=== PATIENT | female | born 1975 | race Caucasian/White ===

== ENCOUNTER 2020-10-20 10:10 | Emergency (ER) | payer OTHER, SELFPAY ==
--- NOTE | ~2020-10-20 | XR_ITS ---
EXAMINATION: XR chest 2V 10/20/2020 11:18 INDICATION: Shortness of breath PROCEDURE: PA and lateral views of the chest COMPARISON: No prior studies for comparison. FINDINGS: The lungs are clear. The cardiomediastinal silhouette is within normal limits. There are no pleural effusions. There is no pneumothorax suspected. IMPRESSION: 1: NO ACUTE CARDIOPULMONARY DISEASE. Reviewed, dictated and finalized at location A. D ASSEMBLY SUPERVISOR
[2020-10-20 10:10] VITALS: BP 151/71; PULSE 80; RESP 20; TEMP 37.2; O2SAT 100
--- NOTE | 2020-10-20 10:12 | ECG_ITS ---
Measurements Intervals [place] Rate: 97 P: 48 [place]: 152 QRS: 14 QRSD: 142 T: 25 QT: 367 QTc: 468 Interpretive Statements SINUS RHYTHM RIGHT BUNDLE BRANCH BLOCK BASELINE ARTIFACT- I, II, III, AVR, AVF ABNORMAL ECG Electronically Signed On 10-21-2020 16:38:42 DUPLICATE MAKER by Ricardo Conrad D.O.
[2020-10-20 11:00] VITALS: PULSE 77; RESP 17; O2SAT 100
[2020-10-20] MEDS: ALPRAZolam (*CRX) 0.5 MG TABLET PO (11:04)
[2020-10-20] MEDS: IPRATROPIUM 0.5 MG/ALBUTEROL SULFATE 2.5 MG AMPUL.NEB 3 ML INHALATION (11:07)
[2020-10-20] MEDS: methylPREDNISolone SOD SUCC 125 MG VIAL IV PUSH (11:07)
[2020-10-20 11:10] VITALS: PULSE 81; RESP 20; O2SAT 100
[2020-10-20 11:29] LABS: Basophils Absolute Auto 0.04 K/mm3 (0.00-0.10); Basophils Percent Auto 0.5 % (0.0-1.0); Eosinophils Percent Auto 3.7 % (1.0-6.0); Hematocrit 39.2 % (35.0-49.0); Hemoglobin 12.2 g/dL (12.0-15.0); Immature Granulocyte Absolute 0.03 K/mm3 (0.00-0.00); Immature Granulocyte Percent A 0.4 % (0.0-0.0); Lymphocytes Absolute Auto 2.37 K/mm3 (1.10-4.50); Mean Corpuscular HGB Conc 31.1 g/dL (32.0-36.0); Mean Corpuscular Hemoglobin 24.8 pg (27.0-31.0); Mean Corpuscular Volume 79.8 fL (78.0-102.0); Mean Platelet Volume 9.1 fl (9.2-11.8); Monocytes Absolute Auto 0.71 K/mm3 (0.10-0.90); Monocytes Percent Auto 8.7 % (2.0-11.0); Neutrophils Absolute Auto 4.7 K/mm3 (1.7-7.2); Neutrophils Percent Auto 57.7 % (50.0-70.0); Platelet Count Result 348 K/mm3 (150-420); Red Blood Count 4.91 M/mm3 (4.20-5.40); Red Cell Distribution Width 15.3 % (11.6-14.4); White Blood Count 8.2 K/mm3 (4.8-10.8)
[2020-10-20 11:46] LABS: Alanine Aminotransferase 22 U/L (14-59); Albumin Level 3.4 g/dL (3.4-5.0); Alkaline Phosphatase 84 U/L (46-116); Anion Gap 9 mmol/L (8-16); Aspartate Amino Transferase < 10 U/L (15-37); Bilirubin,Total 0.2 mg/dL (0.00-1.00); Blood Urea Nitrogen 10 mg/dL (7-18); Calcium 8.9 mg/dL (8.5-10.1); Carbon Dioxide 26 mmol/L (21-32); Chloride 105 mmol/L (98-108); Estimated Glomerular Filt Rate > 60; Glucose 152 mg/dL (70-99); Osmolality Calculated 292 mOsm/kg (285-295); Potassium 3.5 mmol/L (3.5-5.1); Sodium 140 mmol/L (136-145); Total Protein 7.6 g/dL (6.4-8.2)
--- NOTE | 2020-10-20 11:53 | ED.CHESTPAIN ---
HPI - Chest Pain General Chief Complaint: Chest Pain Stated Complaint: chest pain/tightness Source: patient Mode of arrival: ambulatory Limitations: no limitations History of Present Illness HPI narrative: this is a 45-year-old female presents with some chest tightness with increased shortness of breath does have a history of asthma and recently had positive COVID back in early September. Currently the patient is having some audible wheezing with chest tightness history of asthma and currently on inhalers. Currently afebrile with no reproducible chest pain no fever chills no nausea vomiting no abdominal pain. Patient feels that she is also anxious secondary to having difficulty with her breathing. MD complaint: chest discomfort Pertinent past history: asthma Onset (ago): day(s) Timing of current episode: constant Onset: during rest and during exertion Related Data Home Medications Medication Instructions Recorded Confirmed albuterol sulfate 1 - 2 puff INHALATION QID PRN 10/20/20 10/20/20 budesonide-formoterol [Symbicort] 1 puff INHALATION BID 10/20/20 10/20/20 metoprolol succinate 100 mg PO DAILY 10/20/20 10/20/20 omeprazole 20 mg PO DAILY 10/20/20 10/20/20 Allergies Allergy/AdvReac Type Severity Reaction Status Date / Time No Known Allergies Allergy Verified 10/20/20 10:25 Review of Systems Review of Systems: All systems reviewed & are unremarkable except as noted in HPI and below PMFSH Past Medical History Medical History Asthma Exam Const: General: no acute distress HENMT: Head: normal to inspection Eyes: Conjunctivae: conjunctivae normal Pupils: Equal, round and reactive pupils present Direct Ophthalmoscopy: no photophobia Neck: Neck: normal visual inspection Chest: Chest palpation & inspection: normal inspection of the chest Resp: Effort & Inspection: normal respiratory effort Auscultation: wheezes Cardio: Rate: regular rate Rhythm: regular rhythm GI: Auscultation: normal bowel sounds Skin: General skin exam: normal color Rashes: no rashes Extrem: General: normal to inspection Psych: Appearance: grossly normal Mental Status: mental status grossly normal Affect: normal affect Course Course Emergency Course: after nebulizer treatment and IV steroid along with a dose of Xanax the patient states that she feels much better breathing much easier and after reassessment of lungs some patient currently not wheezy and lungs appear more clear. Vital Signs Vital signs: Vital Signs Temperature 37.2 C 10/20/20 10:10 Pulse Rate 80 10/20/20 10:10 Respiratory Rate 20 10/20/20 10:10 Blood Pressure 151/71 H 10/20/20 10:10 Pulse Oximetry 100 10/20/20 10:10 Temperature 37.2 C 10/20/20 10:10 Pulse Rate 80 10/20/20 10:10 Respiratory Rate 20 10/20/20 10:10 Blood Pressure 151/71 H 10/20/20 10:10 Pulse Oximetry 100 10/20/20 10:10 MDM - Chest Pain Lab Data Result diagrams: 10/20/20 11:23 10/20/20 11:23 Labs: Lab Results 10/20/20 10/20/20 Range/Units 11:23 11:23 WBC 8.2 (4.8-10.8) K/mm3 RBC 4.91 (4.20-5.40) M/mm3 Hgb 12.2 (12.0-15.0) g/dL Hct 39.2 (35.0-49.0) % MCV 79.8 (78.0-102.0) fL MCH 24.8 L (27.0-31.0) pg MCHC 31.1 L (32.0-36.0) g/dL RDW 15.3 H (11.6-14.4) % Plt Count 348 (150-420) K/mm3 MPV 9.1 L (9.2-11.8) fl Immature Gran % (Auto) 0.4 H (0.0-0.0) % Neut % (Auto) 57.7 (50.0-70.0) % Lymph % (Auto) 29.0 (18.0-42.0) % [place] % (Auto) 8.7 (2.0-11.0) % Eos % (Auto) 3.7 (1.0-6.0) % Baso % (Auto) 0.5 (0.0-1.0) % Lymph # (Auto) 2.37 (1.10-4.50) K/mm3 [place] # (Auto) 0.71 (0.10-0.90) K/mm3 Eos # (Auto) 0.30 (0.02-0.50) K/mm3 Baso # (Auto) 0.04 (0.00-0.10) K/mm3 Abs Immat Gran (auto) 0.03 H (0.00-0.00) K/mm3 Absolute Neuts (auto) 4.7 (1.7-7.2) K/mm3 Absolute Nucleated RBC 0.00 (0.0
[2020-10-20 11:55] VITALS: BP 134/65; PULSE 81; O2SAT 96
== END 2020-10-20 12:02 | disposition home or self-care (01) ==
PROVIDERS: Emergency Provider Emergency Medicine; PCP Family Medicine
DX: J45.902 Unspecified asthma with status asthmaticus (principal); F41.9 Anxiety disorder, unspecified
CPT/HCPCS: 36415; 71046; 80053; 84484; 85025; 93005; 94640; 96374; 99283; 99284; A9270; J2930

== ENCOUNTER 2021-04-03 08:28 | Emergency (ER) | payer OTHER, SELFPAY ==
[2021-04-03 08:28] VITALS: BP 148/82; PULSE 82; RESP 16; TEMP 36.4; O2SAT 99
[2021-04-03 08:30] VITALS: PULSE 64
--- NOTE | 2021-04-03 08:55 | ECG_ITS ---
Measurements Intervals [place] Rate: 61 P: 59 DE: 159 QRS: 66 QRSD: 145 T: 58 QT: 424 QTc: 430 Interpretive Statements SINUS RHYTHM RIGHT BUNDLE BRANCH BLOCK ABNORMAL ECG Electronically Signed On 04-03-2021 10:38:45 CDT by Ricardo Conrad D.O.
[2021-04-03 09:11] LABS: Basophils Absolute Auto 0.02 K/mm3 (0.00-0.10); Basophils Percent Auto 0.4 % (0.0-1.0); Eosinophils Absolute Auto 0.21 K/mm3 (0.02-0.50); Eosinophils Percent Auto 4.4 % (1.0-6.0); Hematocrit 39.6 % (35.0-49.0); Hemoglobin 12.6 g/dL (12.0-15.0); Immature Granulocyte Absolute 0.01 K/mm3 (0.00-0.00); Immature Granulocyte Percent A 0.2 % (0.0-0.0); Lymphocytes Absolute Auto 1.52 K/mm3 (1.10-4.50); Lymphocytes Percent Auto 31.8 % (18.0-42.0); Mean Corpuscular HGB Conc 31.8 g/dL (32.0-36.0); Mean Corpuscular Hemoglobin 25.9 pg (27.0-31.0); Mean Corpuscular Volume 81.3 fL (78.0-102.0); Mean Platelet Volume 8.9 fl (9.2-11.8); Monocytes Absolute Auto 0.47 K/mm3 (0.10-0.90); Monocytes Percent Auto 9.8 % (2.0-11.0); Neutrophils Absolute Auto 2.6 K/mm3 (1.7-7.2); Neutrophils Percent Auto 53.4 % (50.0-70.0); Platelet Count Result 292 K/mm3 (150-420); Red Blood Count 4.87 M/mm3 (4.20-5.40); Red Cell Distribution Width 17.4 % (11.6-14.4); White Blood Count 4.8 K/mm3 (4.8-10.8)
[2021-04-03 09:33] LABS: Alanine Aminotransferase 20 U/L (14-59); Albumin Level 3.4 g/dL (3.4-5.0); Alkaline Phosphatase 71 U/L (46-116); Anion Gap 13 mmol/L (8-16); Aspartate Amino Transferase 11 U/L (15-37); Bilirubin,Total 0.4 mg/dL (0.00-1.00); Blood Urea Nitrogen 12 mg/dL (7-18); Calcium 8.7 mg/dL (8.5-10.1); Carbon Dioxide 24 mmol/L (21-32); Chloride 103 mmol/L (98-108); Estimated CRCL calculation 120 ml/min; Estimated Glomerular Filt Rate > 60; Glucose 128 mg/dL (70-99); Magnesium 1.8 mg/dL (1.8-2.4); NT Pro B Type Natriuretic Pept 44 pg/mL (0-125); Osmolality Calculated 291 mOsm/kg (285-295); Potassium 3.9 mmol/L (3.5-5.1); Sodium 140 mmol/L (136-145); Troponin I 13.3 ng/L (0.00-60.4)
[2021-04-03 09:55] LABS: Appearance Urine Cloudy (Clear); Bilirubin Urine Negative (Negative); Blood Urine 3+ (Negative); Glucose Urine UA Negative (Negative); Ketones Urine 2+ (Negative); Leukocyte Esterase Ur Trace LEU/UL (Negative); Nitrate Urine Positive (Negative); Protein Urine 2+ (Negative)
--- NOTE | 2021-04-03 09:56 | ED.ARRPALP ---
HPI - Arrhythmia/Palpitations General Chief Complaint: Arrhythmia/Palpitations Stated Complaint: HEART PALPITATIONS Time Seen by Provider: 04/03/21 09:40 Source: patient and family Mode of arrival: ambulatory Limitations: no limitations Related Data Home Medications Medication Instructions Recorded Confirmed albuterol sulfate 1 - 2 puff INHALATION QID PRN 10/20/20 04/03/21 budesonide-formoterol [Symbicort] 1 puff INHALATION BID 10/20/20 04/03/21 metoprolol succinate 100 mg PO DAILY 10/20/20 04/03/21 omeprazole 40 mg PO DAILY 10/20/20 04/03/21 ergocalciferol (vitamin D2) 1,250 mcg PO WEEKLY 04/03/21 04/03/21 Allergies Allergy/AdvReac Type Severity Reaction Status Date / Time No Known Allergies Allergy Verified 10/20/20 10:25 [facility] Past Medical History Medical History Asthma Course Vital Signs Vital signs: Vital Signs Temperature 36.4 C 04/03/21 08:28 Pulse Rate 82 04/03/21 08:28 Respiratory Rate 16 04/03/21 08:28 Blood Pressure 148/82 H 04/03/21 08:28 Pulse Oximetry 99 04/03/21 08:28 Temperature 36.4 C 04/03/21 08:28 Pulse Rate 64 04/03/21 08:30 Respiratory Rate 16 04/03/21 08:28 Blood Pressure 148/82 H 04/03/21 08:28 Pulse Oximetry 99 04/03/21 08:28 MDM - Arrhythmia/Palpitations Lab Data Result diagrams: 04/03/21 09:05 04/03/21 09:06 Labs: Lab Results 04/03/21 04/03/21 04/03/21 Range/Units 09:05 09:06 09:38 WBC 4.8 (4.8-10.8) K/mm3 RBC 4.87 (4.20-5.40) M/mm3 Hgb 12.6 (12.0-15.0) g/dL Hct 39.6 (35.0-49.0) % MCV 81.3 (78.0-102.0) fL MCH 25.9 L (27.0-31.0) pg MCHC 31.8 L (32.0-36.0) g/dL RDW 17.4 H (11.6-14.4) % Plt Count 292 (150-420) K/mm3 MPV 8.9 L (9.2-11.8) fl Immature Gran % (Auto) 0.2 H (0.0-0.0) % Neut % (Auto) 53.4 (50.0-70.0) % Lymph % (Auto) 31.8 (18.0-42.0) % [place] % (Auto) 9.8 (2.0-11.0) % Eos % (Auto) 4.4 (1.0-6.0) % Baso % (Auto) 0.4 (0.0-1.0) % Lymph # (Auto) 1.52 (1.10-4.50) K/mm3 [place] # (Auto) 0.47 (0.10-0.90) K/mm3 Eos # (Auto) 0.21 (0.02-0.50) K/mm3 Baso # (Auto) 0.02 (0.00-0.10) K/mm3 Abs Immat Gran (auto) 0.01 H (0.00-0.00) K/mm3 Absolute Neuts (auto) 2.6 (1.7-7.2) K/mm3 Absolute Nucleated RBC 0.00 (0.00-0.00) K/mm3 Nucleated RBC % 0.0 (0-0.0) % D-Dimer 0.30 (0.19-0.50) mg/L Sodium 140 (136-145) mmol/L Potassium 3.9 (3.5-5.1) mmol/L Chloride 103 (98-108) mmol/L Carbon Dioxide 24 (21-32) mmol/L Anion Gap 13 (8-16) mmol/L BUN 12 (7-18) mg/dL Creatinine 0.69 (0.55-1.02) mg/dL Estim Creat Clear Calc 120 ml/min Estimated GFR > 60 (59 - ) Glucose 128 H (70-99) mg/dL Calculated Osmolality 291 (285-295) mOsm/kg Calcium 8.7 (8.5-10.1) mg/dL Magnesium 1.8 (1.8-2.4) mg/dL Total Bilirubin 0.4 (0.00-1.00) mg/dL AST 11 L (15-37) U/L ALT 20 (14-59) U/L Alkaline Phosphatase 71 (46-116) U/L Troponin I 13.3 (0.00-60.4) ng/L NT-Pro-B Natriuret Pep 44 (0-125) pg/mL Total Protein 7.0 (6.4-8.2) g/dL Albumin 3.4 (3.4-5.0) g/dL Urine Color Urine Appearance Urine pH Ur Specific [place] Urine Protein Urine Glucose (UA) Urine Ketones Ur Blood (Man) Urine Nitrate Urine Bilirubin Urine Urobilinogen Leukocyte Esterase Rfl 04/03/21 Range/Units 09:49 WBC (4.8-10.8) K/mm3 RBC (4.20-5.40) M/mm3 Hgb (12.0-15.0) g/dL Hct (35.0-49.0) % MCV (78.0-102.0) fL MCH (27.0-31.0) pg MCHC (32.0-36.0) g/dL RDW (11.6-14.4) % Plt Count (150-420) K/mm3 MPV (9.2-11.8) fl Immature Gran % (Auto) (0.0-0.0) % Neut % (Auto) (50.0-70.0) % Lymph % (Auto) (18.0-42.0) % [place] % (Auto) (2.0-11.0) % Eos % (Auto) (1.0-6.0) % Baso % (Auto) (0.0-1.0) % Lymph # (Au
[2021-04-03 10:03] LABS: Add Urine Microscopic? YES; Color Urine Dark Red (Yellow); RBC Urine >75 /hpf (0-2); Squamous Epithelial Cell Urine Few /hpf (Few)
[2021-04-03 10:04] LABS: Bacteria Urine Trace /hpf
[2021-04-03] MEDS: levoFLOXacin 500 MG TABLET PO (10:56)
[2021-04-03] MEDS: POTASSIUM BICARBONATE 25 MEQ TABEF 50 MEQ PO (10:56)
[2021-04-03 11:00] VITALS: BP 123/66; PULSE 64; RESP 16; O2SAT 99
== END 2021-04-03 11:04 | disposition home or self-care (01) ==
PROVIDERS: Emergency Provider Emergency Medicine; PCP Family Medicine
DX: R00.2 Palpitations (principal); N39.0 Urinary tract infection, site not specified
CPT/HCPCS: 36415; 80053; 81001; 83735; 83880; 84484; 85025; 85380; 87086; 87088; 93005; 99283; 99284; A9270

== ENCOUNTER 2021-04-11 17:26 | Observation (INO) | payer OTHER, SELFPAY ==
[2021-04-11] VITALS (8 sets, daily range): BP systolic 161–180; BP diastolic 70–88; PULSE 64–120; RESP 18–24; TEMP 36.4–37; O2SAT 95–98; BMI 51.7
--- NOTE | ~2021-04-11 | XR_ITS ---
EXAMINATION: XR chest 1V portable EXAM DATE: 04/11/2021 17:54 INDICATION: Pressure @ the center of chest x1 day with SOB. TECHNIQUE: Portable AP frontal chest x-ray was obtained. Comparison is made to prior examination from 10/30/2020. FINDINGS: The lungs are clear. There are no pleural effusions. The cardiomediastinal silhouette is within normal limits. There is no pneumothorax suspected. The bones and soft tissues are unremarkab le. IMPRESSION: Unremarkable chest x-ray exam. Reviewed, dictated and finalized at location A.
--- NOTE | 2021-04-11 17:31 | ECG_ITS ---
Measurements Intervals [place] Rate: 113 P: 54 MS: 157 QRS: 57 QRSD: 140 T: 32 QT: 349 QTc: 480 Interpretive Statements SINUS TACHYCARDIA RIGHT BUNDLE BRANCH BLOCK MINIMAL Q WAVES- INF/LAT LEADS BASELINE WANDER- V2 ABNORMAL ECG Electronically Signed On 04-11-2021 19:07:29 CDT by Ricardo Conrad D.O.
--- NOTE | 2021-04-11 17:37 | PC.NURSE ---
states I take bendryl for anxiety & I took 3 before coming in
[2021-04-11] MEDS: ALPRAZolam (*CRX) 0.5 MG TABLET PO (17:46)
[2021-04-11 17:58] LABS: Basophils Absolute Auto 0.03 K/mm3 (0.00-0.10); Basophils Percent Auto 0.4 % (0.0-1.0); Eosinophils Absolute Auto 0.24 K/mm3 (0.02-0.50); Eosinophils Percent Auto 2.9 % (1.0-6.0); Hemoglobin 12.9 g/dL (12.0-15.0); Immature Granulocyte Absolute 0.02 K/mm3 (0.00-0.00); Immature Granulocyte Percent A 0.2 % (0.0-0.0); Lymphocytes Absolute Auto 2.83 K/mm3 (1.10-4.50); Lymphocytes Percent Auto 34.4 % (18.0-42.0); Mean Corpuscular HGB Conc 30.7 g/dL (32.0-36.0); Mean Corpuscular Volume 81.6 fL (78.0-102.0); Monocytes Absolute Auto 0.65 K/mm3 (0.10-0.90); Monocytes Percent Auto 7.9 % (2.0-11.0); Neutrophils Absolute Auto 4.5 K/mm3 (1.7-7.2); Neutrophils Percent Auto 54.2 % (50.0-70.0); Platelet Count Result 315 K/mm3 (150-420); Red Blood Count 5.15 M/mm3 (4.20-5.40); Red Cell Distribution Width 16.5 % (11.6-14.4); White Blood Count 8.2 K/mm3 (4.8-10.8)
[2021-04-11 18:19] LABS: Alanine Aminotransferase 19 U/L (14-59); Albumin Level 3.5 g/dL (3.4-5.0); Alkaline Phosphatase 76 U/L (46-116); Anion Gap 14 mmol/L (8-16); Aspartate Amino Transferase < 10 U/L (15-37); Bilirubin,Total 0.3 mg/dL (0.00-1.00); Blood Urea Nitrogen 10 mg/dL (7-18); Calcium 8.8 mg/dL (8.5-10.1); Carbon Dioxide 23 mmol/L (21-32); Chloride 105 mmol/L (98-108); Estimated CRCL calculation 105 ml/min; Estimated Glomerular Filt Rate > 60; Glucose 135 mg/dL (70-99); Lipase 155 U/L (73-393); Osmolality Calculated 295 mOsm/kg (285-295); Potassium 3.3 mmol/L (3.5-5.1); Sodium 142 mmol/L (136-145); Total Protein 7.3 g/dL (6.4-8.2); Troponin I 14.9 ng/L (0.00-60.4)
--- NOTE | 2021-04-11 18:30 | PC.NURSE ---
gave cup & instructions for urine, patient states missed the cup. MD notified
--- NOTE | 2021-04-11 18:33 | ED.GENADULT ---
HPI - General Adult General Chief complaint: Unspecified Stated complaint: chest pain,trouble breathing Source: patient History of Present Illness HPI narrative: this is a 45-year-old female with history of palpitations and currently having increased sensation of palpitations and anxiety there is currently no chest pain no shortness of breath no abdominal pain no fever chills. Patient has no nausea or vomiting no diaphoresis. Patient has a follow-up with cardiology for evaluation of her palpitations. Currently there is no dizziness, no vertigo no chest congestion no shortness of breath no dysuria. Onset (ago): month(s) Radiation: non-radiation Severity: mild Relieving factors: none Exacerbating factors: none Associated symptoms: other ( anxiety) Related Data Home Medications Medication Instructions Recorded Confirmed albuterol sulfate 1 - 2 puff INHALATION QID PRN 10/20/20 04/11/21 budesonide-formoterol [Symbicort] 1 puff INHALATION BID 10/20/20 04/11/21 metoprolol succinate 100 mg PO DAILY 10/20/20 04/11/21 omeprazole 40 mg PO DAILY 10/20/20 04/11/21 ergocalciferol (vitamin D2) 1,250 mcg PO WEEKLY 04/03/21 04/11/21 Allergies Allergy/AdvReac Type Severity Reaction Status Date / Time No Known Allergies Allergy Verified 10/20/20 10:25 Review of Systems Review of Systems: All systems reviewed & are unremarkable except as noted in HPI and below PMFSH Past Medical History Medical History Asthma Social History Social History Gender identity (if verbalized by the patient): Female Exam Const: General: cooperative, healthy appearing, comfortable, no acute distress, well developed, alert, awake and Physically active HENMT: Head: normal to inspection Face and sinus: normal facial exam Mouth: Yes Normal oral and palatal mucosa present Teeth and gingiva: dentition normal Eyes: General: appearance normal, both eyes and all related structures Pupils: Equal, round and reactive pupils present EOM: EOMs intact bilaterally Neck: Neck: normal visual inspection, full ROM, no lymphadenopathy and no meningeal signs Chest: Chest palpation & inspection: normal inspection of the chest and normal palpation of entire chest wall Resp: Effort & Inspection: normal respiratory effort and able to speak in complete sentences Cardio: Jugular venous distension: no JVD Palpation: normal PMI Rate: regular rate Rhythm: regular rhythm Heart sounds: S1 normal heart sound present and S2 normal heart sound present Back/Spine/Pelvis: Back: no CVA tenderness Skin: General skin exam: normal color and no rashes or lesions noted Neuro: General: oriented to person, oriented to place, oriented to time, patient oriented x3 and gait normal Extrem: General: normal to inspection, full ROM and capillary refill normal Psych: Appearance: grossly normal and well kempt Affect: Anxious affect present Course Course Emergency Course: Patient improved with a dose of Xanax labs reviewed with patient EKG reviewed with patient patient has a follow-up with cardiology in 10 days. Vital Signs Vital signs: Vital Signs Temperature 37.0 C 04/11/21 17:40 Pulse Rate 102 H 04/11/21 17:40 Respiratory Rate 22 H 04/11/21 17:40 Blood Pressure 180/70 H 04/11/21 17:40 Pulse Oximetry 95 04/11/21 17:40 Temperature 37.0 C 04/11/21 17:40 Pulse Rate 102 H 04/11/21 17:40 Respiratory Rate 22 H 04/11/21 17:40 Blood Pressure 180/70 H 04/11/21 17:40 Pulse Oximetry 95 04/11/21 17:40 Medical Decision Making Vital Signs Vital Signs: Vital Signs Temperature 37.0 C 04/11/21 17:40 Pulse Rate 102 H 04/11/21 17:40 Respiratory Rate 22 H 04/11/21 17:40 Blood Pressure 180/70 H 04/11/21 17:40 Pulse Oximetry 95 04/11/21 17:40 Temperature 37.0 C 04/11/21 17:40 Pulse Rate 102 H 04/11/21 17:40 Respiratory Rate 2
--- NOTE | 2021-04-11 18:38 | ECG_ITS ---
Measurements Intervals [place] Rate: 114 P: 69 VT: 150 QRS: 87 QRSD: 138 T: 34 QT: 344 QTc: 474 Interpretive Statements SINUS TACHYCARDIA RIGHT BUNDLE BRANCH BLOCK MINIMAL Q WAVES- INFERIOR LEADS BASELINE ARTIFACT- I, III, AVR, AVL, AVF, V1-V2 ABNORMAL ECG Electronically Signed On 04-11-2021 19:08:03 CDT by Ricardo Conrad D.O.
[2021-04-11 19:08] LABS: Magnesium 1.8 mg/dL (1.8-2.4)
[2021-04-11] MEDS: METOPROLOL TARTRATE 50 MG TAB PO (19:11)
--- NOTE | 2021-04-11 20:10 | PC.NURSE ---
Patient admitted to floor from ER for observation status at 1930. Patient having palpitations HR at 100. Rhythm WNL. Telemetry placed on patient per MD order. IV, 20g R wrist, infiltrated. Pouring Crane Operator placed 22g L hand. Flushes without difficulty. Increase anxiousness noted, video game script writer spoke with patient 1;1 and calmed patient. A/O x4, able to ambulate independently, up ad oliver.
--- NOTE | 2021-04-11 21:00 | PC.NURSE ---
Hazardous Materials Handler collected UA for urinalysis and drug screen. Lab notified. Awaiting results.
[2021-04-11 21:03] LABS: Appearance Urine Clear (Clear); Bilirubin Urine Negative (Negative); Color Urine Light Yellow (Yellow); Glucose Urine UA Negative (Negative); Ketones Urine 2+ (Negative); Leukocyte Esterase Ur Negative (Negative); Nitrate Urine Negative (Negative); Protein Urine Negative (Negative); Urobilinogen Urine 0.2 mg/dL (0.2-1.0)
[2021-04-11 21:09] LABS: Add Urine Microscopic? YES; Bacteria Urine None seen /hpf; Blood Urine Trace-Intact (Negative); RBC Urine 0-2 /hpf (0-2); Squamous Epithelial Cell Urine None seen /hpf (Few); WBC Urine 0-3 /hpf (0-3)
[2021-04-11 21:09] LABS: Amphetamine Screen Urine Negative (Negative); Barbiturate Screen Urine Negative (Negative); Benzodiazepines Screen Urine Negative (Negative); Cannabinoid Screen Urine Negative (Negative); Cocaine Screen Urine Negative (Negative); Methadone Screen Urine Negative (Negative); Opiate Screen Urine Negative (Negative); Phencyclidine Screen Urine Negative (Negative)
[2021-04-11] MEDS: ACETAMINOPHEN 325 MG TABLET 650 MG PO (22:40)
[2021-04-12 03:53] VITALS: PULSE 56
--- NOTE | 2021-04-12 03:55 | PC.NURSE ---
Patient resting comfortably at this time. Denies any palpitations or chest pressure. RLS seems to have settled with tylenol given earlier this evening. Ambulating to BR independently. Continues with telemetry at 56 NSR. Monitoring.
[2021-04-12 05:28] LABS: Basophils Absolute Auto 0.03 K/mm3 (0.00-0.10); Basophils Percent Auto 0.4 % (0.0-1.0); Eosinophils Absolute Auto 0.23 K/mm3 (0.02-0.50); Eosinophils Percent Auto 3.4 % (1.0-6.0); Hemoglobin 12.1 g/dL (12.0-15.0); Immature Granulocyte Absolute 0.02 K/mm3 (0.00-0.00); Immature Granulocyte Percent A 0.3 % (0.0-0.0); Lymphocytes Absolute Auto 2.51 K/mm3 (1.10-4.50); Lymphocytes Percent Auto 37.6 % (18.0-42.0); Mean Corpuscular HGB Conc 31.8 g/dL (32.0-36.0); Mean Corpuscular Volume 81.7 fL (78.0-102.0); Mean Platelet Volume 8.8 fl (9.2-11.8); Monocytes Absolute Auto 0.66 K/mm3 (0.10-0.90); Monocytes Percent Auto 9.9 % (2.0-11.0); Neutrophils Absolute Auto 3.2 K/mm3 (1.7-7.2); Neutrophils Percent Auto 48.4 % (50.0-70.0); Platelet Count Result 268 K/mm3 (150-420); Red Blood Count 4.65 M/mm3 (4.20-5.40); Red Cell Distribution Width 16.6 % (11.6-14.4); White Blood Count 6.7 K/mm3 (4.8-10.8)
[2021-04-12] MEDS: BUDESONIDE/FORMOTEROL 80/4.5 MCG 6.9 GM INHALER (*SP) 1 PUFF INHALATION (05:55)
[2021-04-12 06:00] VITALS: BP 128/63; PULSE 66; RESP 18; TEMP 36.1; O2SAT 98
[2021-04-12 07:29] LABS: Alanine Aminotransferase 18 U/L (14-59); Albumin Level 3.2 g/dL (3.4-5.0); Alkaline Phosphatase 63 U/L (46-116); Anion Gap 11 mmol/L (8-16); Aspartate Amino Transferase < 10 U/L (15-37); Bilirubin,Total 0.3 mg/dL (0.00-1.00); Blood Urea Nitrogen 8 mg/dL (7-18); Calcium 8.3 mg/dL (8.5-10.1); Carbon Dioxide 24 mmol/L (21-32); Chloride 107 mmol/L (98-108); Estimated CRCL calculation 144 ml/min; Estimated Glomerular Filt Rate > 60; Glucose 126 mg/dL (70-99); Osmolality Calculated 294 mOsm/kg (285-295); Potassium 3.8 mmol/L (3.5-5.1); Sodium 142 mmol/L (136-145); Total Protein 6.4 g/dL (6.4-8.2); Troponin I 18.8 ng/L (0.00-60.4)
--- NOTE | 2021-04-12 07:49 | ECG_ITS ---
Measurements Intervals [place] Rate: 61 P: 39 AK: 175 QRS: 23 QRSD: 149 T: 27 QT: 433 QTc: 436 Interpretive Statements SINUS RHYTHM RIGHT BUNDLE BRANCH BLOCK ABNORMAL ECG Electronically Signed On 04-12-2021 7:42:12 CDT by Ricardo Conrad D.O.
[2021-04-12 08:21] VITALS: BP 112/56; PULSE 68; RESP 16; TEMP 36.3; O2SAT 99
--- NOTE | 2021-04-12 08:44 | PM.SD2 ---
Same Day Admit/Disch: HPI History of Present Illness Chief complaint: SINUS TACHYCARDIA ANXIETY Narrative: Bronwyn Negron is a 45 year old female that presented to urgent care with complaints of heart palpitations. Patient has a past medical history of asthma and anxiety. According to patient yesterday she started experiencing an anxiety attack with palpitation. According to patient she usually takes Benadryl to resolve her anxiety attack yesterday she took more than normal Benadryl for her anxiety attack in palpitations. Patient did note in the past she was given Ativan for her anxiety attack, she changed providers and was not given a new prescription for Ativan. I will discharge patient home with a short dose of Ativan and instructed her that she will have to get a refill from her primary care physician, but was advised that sheshould see a psychiatrist for treatment of her anxiety. Today patient still admits to having anxiety but her palpitations has decreased. Patient also admits that she has been going through a lot in her personal life such as recent of a parent, caring for her demented, paralyzed mother and other family members with illnesses. She also noted that in the past she has been placed on depression medication and did not take them because she did not like the way they made her feel. Patient does admit to depression .she was also concerned about her right bundle block. I did give her information concerning her condition and informed her that it was not a concern. She does have an appointment with a roughing mill operator at [facility] on April 22. I informed her at that time her roughing mill operator will complete several tests to determine her cause of palpitations. Patient remains anxious to stay but with less palpitations. Vitals 112/56, 68, 16, 97.4, 99% on room air. WBC 6.7, hemoglobin 12.1, hematocrit 38, platelets 268, sodium 142, potassium 3.8, BUN 8, creatinine 0.57, glucose 126 troponin negative x3, toxicology negative, sinus rhythm with a heart rate of 61 right bundle block branch. Patient is being admitted to rule out AMI Observation 60 minutes Disposition Home with self-care [facility] Past Medical History Medical History Asthma Social History Social History Smoking status: Former smoker Tobacco type: cigarettes Second hand tobacco smoke exposure: No Alcohol intake: never Substance use: never Gender identity (if verbalized by the patient): Female Spiritual care concerns: No Same Day Admit/Disch: Med Pre-admit Medications Home Medications Medication Instructions Recorded Confirmed Type albuterol sulfate 1 - 2 puff INHALATION QID PRN 10/20/20 04/11/21 History budesonide-formoterol [Symbicort] 1 puff INHALATION BID 10/20/20 04/11/21 History metoprolol succinate 100 mg PO DAILY 10/20/20 04/11/21 History omeprazole 40 mg PO DAILY 10/20/20 04/11/21 History ergocalciferol (vitamin D2) 1,250 mcg PO WEEKLY 04/03/21 04/11/21 History lorazepam [Ativan] 2 mg PO TID PRN #30 tablet 04/12/21 Rx Exam Narrative: Exam Narrative: GENERAL: This is a well-nourished, well-developed patient, in no apparent distress. HEAD: normocephalic, atraumatic. EYES: PERRL. Sclera clear/white. Vision is grossly intact. EARS: External ears normal, auditory canals clear and without drainage, TMs normal without perforation. Hearing grossly intact. NOSE: External nose normal with no obvious nasal discharge, nares without redness, no rhinorrhea. THROAT: Mucous membranes moist, posterior pharynx clear. NECK: Neck supple, non-tender without lymphadenopathy, masses or thyromegaly. CARDIOVASCULAR: Regular rate and rhythm without murmurs, gallops, or rubs. RESPIRATORY: Clear to auscultation. Breath sounds equal bilaterally. No wheezes, rales, or rhonchi. GASTROINTESTINAL: Abdomen soft, non-tender, nondistended. Bowel sounds a
[2021-04-12] MEDS: POTASSIUM CHLORIDE 20 MEQ TABLET PO (09:41)
[2021-04-12] MEDS: LORazepam (*CRX) 1 MG TABLET PO (09:41)
--- NOTE | 2021-04-12 11:03 | PC.NURSE ---
1055 patient dc to her personal vehicle per . dc instructions went over. voices an understanding. claims she has had anxiety since she was a teenager. dc'd her ativan when she was . claims oral ativan did help but does feel slighty anxious. claims it is not helping her anxiety as fast as it did before. asked for suggestions that could help her anxiety with out meds. some suggestions were take a walk, have a quiet space, talk to a friend, music, and so forth. encouraged to keep cardiac appointment and to follow with fmd.
--- NOTE | 2021-04-22 11:27 | PC.NURSE ---
Unable to contact for discharge call back.
== END 2021-04-12 10:55 | disposition home or self-care (01) ==
LOC: CHSED 18:44 → CHS2ND 18:53
PROVIDERS: Nurse Practitioner; Admitting Provider Emergency Medicine; Emergency Provider Emergency Medicine; PCP Physician Assistant; Visit Provider Emergency Medicine
DX: R00.2 Palpitations (principal); R07.9 Chest pain, unspecified; R00.0 Tachycardia, unspecified; J45.909 Unspecified asthma, uncomplicated; F41.9 Anxiety disorder, unspecified; F32.9 Major depressive disorder, single episode, unspecified; I45.10 Unspecified right bundle-branch block; Z87.891 Personal history of nicotine dependence
CPT/HCPCS: 36415; 71045; 80053; 80307; 81001; 83690; 83735; 84484; 85025; 85380; 93005; 99285; A9270; G0378

== ENCOUNTER 2022-04-02 12:02 | Outpatient (CLI) | payer OTHER, SELFPAY ==
--- NOTE | ~2022-04-02 | US_ITS ---
EXAMINATION: US pelvic complete DATE: 04/02/2022 12:57 INDICATION: Abnormal menses TECHNIQUE: Multiple transabdominal and endovaginal sonographic images of the pelvis were obtained. COMPARISON: None. FINDINGS: The uterus measures 11.0 x 5.6 x 6.3 cm. The endometrial complex measures 2 mm. The right o vary measures 3 x 1.9 x 1.7 cm. The left ovary measures 2.4 x 1.7 x 1.9 cm. There is normal vascular flow in the ovaries. There is no free fluid in the pelvis. IMPRESSION: 1. No sonographic correlate for the patient's symptoms. Reviewed, dictated and finalized at location A.
== END 2022-04-02 12:03 | disposition home or self-care (01) ==
LOC: CHSIMG 12:04
PROVIDERS: PCP Physician Assistant; Visit Provider Physician Assistant
DX: N92.6 Irregular menstruation, unspecified (principal)
CPT/HCPCS: 76856

== ENCOUNTER 2022-08-18 11:38 | Outpatient (CLI) | payer OTHER, SELFPAY ==
--- NOTE | ~2022-08-18 | MM_ITS ---
EXAMINATION: MM screening haley BI w bro[facility] HISTORY: Screening mammogram TECHNIQUE: Craniocaudal and mediolateral oblique 3-D tomosynthesis images were obtained and synthetic 2-D images were generated. CAD analysis was submitted and interpreted. COMPARISON: No prior mammogram is available for comparison at this institution. BREAST PARENCHYMAL COMPOSITION: There are scattered areas of fibroglandular density. FINDINGS: There is no evidence of suspicious mass, calcification, or architectural distortion to sugg est malignancy in either breast. There has been no suspicious interval change. IMPRESSION: 1. No mammographic evidence of malignancy. 2. Recommend routine screening mammography in one year. BI-RADS Category 1: Negative Reviewed, dictated and finalized at location A. CASTER
== END 2022-08-18 11:39 | disposition home or self-care (01) ==
LOC: CHSIMG 11:39
PROVIDERS: PCP Physician Assistant; Visit Provider Physician Assistant
DX: Z12.31 Encounter for screening mammogram for malignant neoplasm of breast (principal)
CPT/HCPCS: 77063; 77067

== ENCOUNTER 2024-08-12 13:00 | Outpatient (CLI) | payer OTHER, SELFPAY ==
[2024-08-12 13:50] LABS: Cholesterol 178 mg/dL (0-200); HDL Direct 51 mg/dL (40-60); LDL Cholesterol Calculated 108 mg/dL (<130); Triglycerides 95 mg/dL (0-150)
== END 2024-08-12 13:01 | disposition home or self-care (01) ==
LOC: CHSLAB 13:01
PROVIDERS: PCP Physician Assistant; Visit Provider Family Medicine
DX: E78.00 Pure hypercholesterolemia, unspecified (principal); T78.40XA Allergy, unspecified, initial encounter
CPT/HCPCS: 36415; 80061; 82785; 86003

== ENCOUNTER 2025-04-25 11:58 | Outpatient (CLI) | payer OTHER, SELFPAY ==
--- NOTE | ~2025-04-25 | MM_ITS ---
EXAMINATION: MM screening haley BI w [facility] HISTORY: Screening TECHNIQUE: Craniocaudal and mediolateral oblique 3-D tomosynthesis images were obtained and synthetic 2-D images were generated. CAD analysis was submitted and interpreted. COMPARISON: 08/18/2022 BREAST PARENCHYMAL COMPOSITION: Not dense: There are scattered areas of fibroglandular density. FINDINGS: There is no evidence of suspicious mass, calcification, or architectural distortion to sugg est malignancy in either breast. There has been no suspicious interval change. IMPRESSION: 1. No mammographic evidence of malignancy. 2. Recommend routine screening mammography in one year. BI-RADS Category 1: Negative Reviewed, dictated and finalized at location B.
--- NOTE | ~2025-04-25 | CT_ITS ---
CT Scan of the Chest without Contrast: Clinical Indication: Lung cancer screening, nicotine dependence Technique: Contiguous sections were acquired throughout the chest without intravenous contrast. Dose reduction technique was used on this scan by utilizing automated exposure control and iterative recon struction technique. The dose-length product (DLP) was 821.11 mGy-cm. Findings: There is no evidence of any significant mediastinal, hilar or axillary lymphadenopathy. The mediastin al soft tissues appear normal. There is no evidence of pleural or pericardial effusion. The lungs are clear. No pulmonary nodules or infiltrates are noted. Images through the upper abdomen reveal no abnormalities. Impression: Lung RADS 1: Negative. 12 month follow-up screening CT advised. Reviewed, dictated and finalized at location . Impression: Lung RADS 1: Negative. 12 month follow-up screening CT advised.
--- OUTSIDE RECORDS SUMMARY | 2025-04-25 12:02 | XMS_ITS | Referral Summary ---
Author Organization [facility] [address] Address [address] [place] [address] Care Team Providers Care Toy [employer] Former Supervisor Name Role Phone Tenzin Corey MD Primary Care Provider [phone] Allergies No known active allergies Medications metoprolol XL (TOPROL-XL) 100 mg 24 hr tablet Take 100 mg by mouth daily 03/23/2021 Active omeprazole (PriLOSEC) 20 mg capsule Take 20 mg by mouth daily Active Symbicort 80-4.5 mcg/actuation inhaler 03/20/2021 Active albuterol HFA (PROVENTIL HFA,VENTOLIN HFA,PROAIR HFA) 90 mcg/actuation inhaler 03/20/2021 Active acetaminophen (TYLENOL) 500 mg tablet Take 500 mg by mouth every 6 (six) hours as needed for pain Active LORazepam (ATIVAN) 1 mg tablet 11/27/2022 Active venlafaxine (EFFEXOR) 25 mg tablet Take 25 mg by mouth daily Active dilTIAZem (CARDIZEM) 30 mg tablet Take 1 tablet (30 mg total) by mouth daily as needed (every 6 hours as needed) 90 tablet 1 03/19/2023 Active Active Problems Problem Noted Date Diagnosed Date Palpitations 04/22/2021 RBBB 04/22/2021 Morbid obesity 04/22/2021 Essential hypertension 04/22/2021 Social History Tobacco Use Types Packs/Day Years Used Date Smoking Tobacco: Former Smokeless Tobacco: Never Personal Safety Answer Date Recorded Getting School Help Needed Not on file 10/11 Comments Unknown Sex and Gender Information Value Date Recorded Sex Assigned at Not on file Legal Sex Female 9:23 AM CDT Gender Identity Not on file Sexual Orientation Not on file Last Filed Vital Signs Vital Sign Reading Time Taken Comments Blood Pressure 130/80 12/15/2022 8:47 AM FIBREGLASS LAMINATOR Pulse 73 12/15/2022 8:47 AM FIBREGLASS LAMINATOR Temperature - - Respiratory Rate - - Oxygen Saturation 98% 12/15/2022 8:47 AM FIBREGLASS LAMINATOR Inhaled Oxygen Concentration - - Weight 140.6 kg (309 lb 14.4 oz) 12/15/2022 8:47 AM FIBREGLASS LAMINATOR Height 162.6 cm (5' 4) 12/15/2022 8:47 AM FIBREGLASS LAMINATOR Body Mass Index 53.19 12/15/2022 8:47 AM FIBREGLASS LAMINATOR Plan of Treatment Not on file Insurance [employer] [place] [facility] Care Teams Toy Parts Former Supervisor Relationship Specialty Start Date End Date Tenzin Corey MD PCP - General Family Medicine 04/10/21
--- OUTSIDE RECORDS SUMMARY | 2025-04-25 12:02 | XMS_ITS ---
Author Organization Unknown Plan of Treatment Description Planned Activity Planned Timing [facility] is a provider organization who partners directly with Health Plans and provides integrated primary care, behavioral health, and social services assistant for an attributed population Letter encounter to patientTelephone encounter Apr 06, 2025Jul 2024 Patient Care team information Name Category Status Period Participants - - Proposed period not known -
--- OUTSIDE RECORDS SUMMARY | 2025-04-25 12:02 | XMS_ITS ---
Author Organization Unknown Address [address] [place] [address] [phone] Phone Care Team Providers Care Carriage Operator Name Role Phone NAMAN Fonseca Attending Unavailable JOANNA ODOM HOT ROLLER Unavailable MAGEN Maldonado Primary Unavailable Results BEDSIDE GLUCOSE - Collect Da te/Time: 11/12/2023 13:37 [facility] ID: [id number] [address] [place] [address], [phone] LOINC: 44738-4 Test Value Unit Reference Range Code Code System Flag BEDSIDE GLUCOSE 116 mg/dl L=74 H=106 03963-2 LOINC H BEDSIDE GLUCOSE - Collect Da te/Time: 11/12/2023 12:22 [facility] ID: [id number] [address] [place] [address], [phone] LOINC: 59210-4 Test Value Unit Reference Range Code Code System Flag BEDSIDE GLUCOSE 125 mg/dl L=74 H=106 59903-0 LOINC H TEST URINE - Colle ct Date/Time: 11/12/2023 12:04 [facility] ID: [id number] [address] [place] [address], [phone] LOINC: Test Value Unit Reference Range Code Code System Flag URINE PREG NEGATIVE Social History Type Status Start Date End Date Code Code Syst em Smoking History Former smoker 7466749 SNOMED CT Sex Female Vital Signs Vital Sign Value Unit [place] Value [place] Unit Date/Time Recent/Initial? Code Code System Body Mass Index 51.49 kg/m2 11/12/2023 12:25 Most Recent 97934 -5 INC Body Mass Index 51.32 kg/m2 11/04/2023 10:00 Initial 88099 -5 INC Systolic Blood Pressure 170 mm[Hg] 11/12/2023 12:25 Initial 8480- 6 LOINC Diastolic Blood Pressure 80 mm[Hg] 11/12/2023 12:25 Initial 8462- 4 LOINC Body Surface Area 2.48 m2 11/12/2023 12:25 Most Recent 3140- 1 INC Body Surface Area 2.47 m2 11/04/2023 10:00 Initial 3140- 1 LOINC Height 162.560 0 cm 64.00 in 11/12/2023 12:25 Most Recent 8302- 2 LOINC Height 162.560 0 cm 64.00 in 11/04/2023 10:00 Initial 8302- 2 INC O2 Saturation 98 % 2023 12:25 Initial 44735 -5 INC Pulse 88.0 /min 11/12/2023 12:25 Initial 8867- 4 INC Respiration 16 /min 11/12/19 12:25 Initial 9279- 1 INC Temperature 36.9 Emma 98.4 F 11/12/19 12:25 Initial 8310- 5 INC Weight 136.08 kg 300.00 lbs 11/12/2023 12:25 Most Recent 15575 -7 INC Weight 135.62 kg 299.00 lbs 11/04/2023 10:00 Initial 94284 -7 [facility] Medications Medication Start Date End Date Route Frequency Dose Code Code System Medication Instructions Home Meds Ativan 1MG Oral Tablet 11/12/2023 Unknown ORAL NEEDED DAILY 1 MILLIGRAMS 980914 RxNorm TAKE 1 MILLIGRAMS ORAL NEEDED DAILY FLUoxetine 20MG Oral Capsule 11/12/2023 Unknown ORAL ONCE A DAY 20 MILLIGRAMS 983945 RxNorm TAKE 20 MILLIGRAMS ORAL ONCE A DAY Gabapentin 100MG Oral Capsule 11/12/2023 Unknown ORAL NEEDED 100 MILLIGRAMS 580965 RxNorm TAKE 100 MILLIGRAMS ORAL NEEDED Metoprolol Succinate 100MG Oral Tablet, Extended Release 11/12/2023 Unknown ORAL ONCE A DAY 100 MILLIGRAMS 134135 RxNorm TAKE 100 MILLIGRAMS ORAL ONCE A DAY Omeprazole 20 MG Oral Tablet, Delayed Release 11/12/2023 Unknown ORAL ONCE A DAY 20 MG RxNorm TAKE 20 MG ORAL ONCE A DAY Pepcid 20MG Oral Tablet 11/12/2023 Unknown ORAL ONCE A DAY 20 MILLIGRAMS 108320 RxNorm TAKE 20 MILLIGRAMS ORAL ONCE A DAY Symbicort 80/4.5 80MCG-4.5MCG /1 Actua Inhalation Aerosol Liquid 11/12/2023 Unknown INHALATION NEEDED 1 unit(s) 7260269 RxNorm 1 EACH INHALATION NEEDED hydrOXYzine HCl 10MG Oral Tablet 11/12/2023 Unknown ORAL NEEDED 10 MILLIGRAMS 699639 RxNorm TAKE 10 MILLIGRAMS ORAL NEEDED Assessment You had the following problems:CONTACT WITH AND (SUSPECTED) EXPOSURE TO OTHER VIRAL COMMUNICABLE DISEASES Hospital Discharge Instructions Should you have any questions prior to discharge, please contact a member of your healthcare team. If you have left the hospital and have any questions, please contact your primary care physician. Reason For Referral No Data Found Procedures Procedure Name Date Status Code Code Syste m Colorectal cancer screening; colonoscopy on individual not meeting criteri 11/12/2023 completed G0121 CPT EGD completed 298817611 SNOMEDCT Anesthesia for combined uppe r and lower gastrointestinal endoscopic proced 11/12/2023 completed 84327 CPT section completed 69499501 SNOMEDCT Esophagogastroduodenoscopy, flexible, transoral; diagnostic, including col 11/12/2023 completed 75082 CPT Problems Problem Start Date Resolved Date Status Code Code System CONTACT WITH AND (SUSPECTED) EXPOSURE TO OTHER VIRAL COMMUNICABLE DISEASES active 969036320 SNOMED -CT Allergies and Adverse Reactions Allergy Substance Reaction Severity Start Date Concern Status Co de Code System METFORMIN ABD pain (SNOMED-CT: 92088739) Active 6809 RxNorm Plan of Treatment COVID-19 Drive Thru Screen 09/20/2020 US Abdomen Complete (77857) 08/27/2020 EGD/Colonoscopy 11/12/2023 Encounters Encounter Diagnosis Start Date Code Code Sys tem Encounter for screening for malignant neoplasm of colo n 11/12/2023 SNOMED-CT Personal Care Team Section Procedures Notes
--- OUTSIDE RECORDS SUMMARY | 2025-04-25 12:02 | XMS_ITS | Encounter Summary ---
Author Organization [facility] Address [facility] [place] [address] Care Team Providers Care Skin Therapist Name Role Phone Tenzin Corey MD Primary Care Provider [phone] Encounter Details Date Type Department Care Team (Late st Contact Info) Description 03/19/2019 Abstract SFL CONVERSION [address] [place] [address] , Generic Conversion, Social History Tobacco Use Types Packs/Day Years Used Date Smoking Tobacco: Never Assessed Comments Unknown Sex and Gender Information Value Date Recorded Sex Assigned at Female 11/17/2024 10:27 AM CLAY MIXER Legal Sex Female 5:46 PM CLAY MIXER Gender Identity Not on file Sexual Orientation Not on file documented as of this encounter Plan of Treatment Not on file documented as of this encounter Visit Diagnoses Not on filedocumented in this encounter Additional Health Concerns Infection Onset Date Last Indicated Resolved Time COVID-19 Rule Out 11/17/2024 11/17/2024 11/17/2024 11:22 AM CLAY MIXER documented as of this encounter Care Teams Skin Therapist Relationship Specialty Start Date End Date Tenzin Corey MD [address] [place] [phone] PCP - General FAMILY PRACTICE 06/22/19 documented as of this encounter
--- OUTSIDE RECORDS SUMMARY | 2025-04-25 12:02 | XMS_ITS | Clinical Summary ---
Author Organization [facility] Address [facility] [place] [address] Care Team Providers Care Home Health Attendant Name Role Phone Tenzin Corey MD Primary Care Provider Allergies Active Allergy Reactions Criticality Noted Date Comments Ibuprofen Other (see comment) Medium 09/07/2019 Ulcers Medications omeprazole 20 MG capsule Take 20 mg by mouth daily. Active LORazepam 1 MG tablet Take 1 tablet (1 mg total) by mouth as needed. 1 Active acetaminophen 500 MG tablet Take 500 mg by mouth every 6 (six) hours as needed. Active albuterol sulfate HFA 108 (90 Base) MCG/ACT inhaler Inhale 1 puff into the lungs daily. 1 Active budesonide-form oterol (SYMBICORT) 80-4.5 MCG/ACT inhaler Inhale 1 puff into the lungs daily. 1 Active metoprolol succinate ER 100 MG 24 hr tablet Take 100 mg by mouth daily. 1 Active FLUoxetine (PROZAC) 10 MG tablet Take 1 tablet (10 mg total) by mouth daily. Active ipratropium-alb uterol (DUONEB) 0.5-2.5 (3) MG/3ML Solution Take 3 mLs by nebulization every 6 (six) hours as needed (Cough, wheeze, shortness of breath). 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 Family History Medical History Relation Comments No Known Problems Brother 1 Heart Disease Brother 2 Diabetes Father Heart Disease Father Hypertension Mother Stroke Mother Cary Gerrigs Sister Relation Status Comments Brother 1 Alive Brother 2 Alive Father Mother Alive Sister Social History Tobacco Use Types Packs/Day Years Used Date Smoking Tobacco: Never Smokeless Tobacco: Never Alcohol Use Standard Drinks/Week Comments No 0 (1 standard drink = 0.6 oz pur e alcohol) AUDIT-C Answer Date Recorded Frequency of Alcohol Consumption Never 09/07/2019 Average Number of Drinks Not on file 019 Frequency of Binge Drinking Not on file 08/13 Comments No Sex and Gender Information Value Date Recorded Sex Assigned at Female 11/17/2024 10:27 AM FREIGHT TEAM ASSOCIATE Legal Sex Female 5:46 PM FREIGHT TEAM ASSOCIATE Gender Identity Not on file Sexual Orientation Not on file Last Filed Vital Signs Vital Sign Reading Time Taken Comments Blood Pressure 197/89 11/17/2024 10:26 AM FREIGHT TEAM ASSOCIATE Pulse 102 11/17/2024 10:26 AM FREIGHT TEAM ASSOCIATE Temperature 36.9 C (98.4 F) 11/17/2024 10:26 AM FREIGHT TEAM ASSOCIATE Respiratory Rate 22 11/17/2024 10:26 AM FREIGHT TEAM ASSOCIATE Oxygen Saturation 98% 11/17/2024 10:49 AM FREIGHT TEAM ASSOCIATE Inhaled Oxygen Concentration - - Weight 135.7 kg (299 lb 4 oz) 11/17/2024 10:26 A M FREIGHT TEAM ASSOCIATE Height 162.6 cm (5' 4) 11/17/2024 10:26 AM FREIGHT TEAM ASSOCIATE Body Mass Index 51.37 11/17/2024 10:26 AM FREIGHT TEAM ASSOCIATE Plan of Treatment Health Maintenance Due Date Last Done Comments Cervical Cancer Screening Pa p Smear (Age 30 to 64) Every 3 Years 1974 Colorectal Cancer Screening Colonoscopy (10 Years) 1974 Annual Physical 1977 Hepatitis C 1992 DTaP, Tdap and Td Vaccines ( 1 - Tdap) 1993 Hepatitis B Vaccines (1 of 3 - 19+ 3-dose series) 1993 Pneumococcal Vaccine: 50+ Ye ars (1 of 2 - PCV) 1993 Cervical Cancer Screening Pa p with HPV Testing (Age 30 to 64) Every 5 Years 2004 Cervical Cancer Screening with HPV 2004 Mammogram Screening 2014 COVID-19 Vaccine ( - 2023-2 5 season) 2024 Zoster Vaccines (1 of 2) 2024 Meningococcal B Vaccine Aged Out No l onger eligible based on patient's age to complete this topic Meningococcal Vaccine Aged Out No teresa lester eligible based on patient's age to complete this topic RSV Immunizations Under 20 Months Aged Out No longer eligible based on patient's age to complete this topic Insurance [employer] Care Teams Home Health Attendant Relationship Specialty Start Date End Date Tenzin Corey MD [address] [place] [phone] PCP - General FAMILY PRACTICE 06/22/19
--- OUTSIDE RECORDS SUMMARY | 2025-04-25 12:02 | XMS_ITS | Clinical Summary ---
Author Organization [facility] [address] Address [address] [place] [address] Care Team Providers Care Online Education Manager Name Role Phone Tenzin Corey MD Primary Care Provider Allergies No known active allergies Medications metoprolol [...] 04/22/2021 Morbid obesity 04/22/2021 Essential hypertension 04/22/2021 Surgical History Surgery Date Site/Laterality Comments SECTION 1999, 1993, 2017 Medical History Medical History Date Comments Hypertension Anxiety Family History Medical History Relation Name Comments Hypertension Father Lung cancer Father Hypertension Mother Relation Name Status Comments Father (Age 87) Mother Alive Social History Tobacco Use Types Packs/Day Years Used Date Smoking Tobacco: Former Smokeless Tobacco: Never Personal Safety Answer Date Recorded Getting School Help Needed Not on file 10/11 Comments Unknown Sex and Gender Information Value Date Recorded Sex Assigned at Not on file Legal Sex Female 9:23 AM CDT Gender Identity Not on file Sexual Orientation Not on file Obstetrics History Last Filed Vital Signs Vital Sign Reading Time Taken Comments Blood Pressure 130/80 12/15/2022 8:47 AM ADVERTISING SPECIALIST Pulse 73 12/15/2022 8:47 AM ADVERTISING SPECIALIST Temperature - - Respiratory Rate - - Oxygen Saturation 98% 12/15/2022 8:47 AM ADVERTISING SPECIALIST Inhaled Oxygen Concentration - - Weight 140.6 kg (309 lb 14.4 oz) 12/15/2022 8:47 AM ADVERTISING SPECIALIST Height 162.6 cm (5' 4) 12/15/2022 8:47 AM ADVERTISING SPECIALIST Body Mass Index 53.19 12/15/2022 8:47 AM ADVERTISING SPECIALIST Plan of Treatment Health Maintenance Due Date Last Done Comments Breast Cancer Screening-Mammogram 1974 Cervical Cancer Screening 1974 Colon Cancer Screening-Colonoscopy 1974 Depression Screening 1974 Hepatitis C Screening 1974 DTaP/Tdap/Td Vaccine (1 - Tdap) 1985 Hepatitis B Screening 1992 Regular Well Visit/Exam 18-64 1992 Zoster Vaccine (1 of 2) 2024 Influenza Vaccine (Season Ended) 2025 Pneumococcal vaccine <65 Aged Out No longer eligible based on patient's age to complete this topic Insurance [employer] [facility] Care Teams Online Education Manager Relationship Specialty Start Date End Date Tenzin Corey MD PCP - General Family Medicine 04/10/21
== END 2025-04-25 11:59 | disposition home or self-care (01) ==
PROVIDERS: PCP Physician Assistant; Visit Provider Family Medicine
DX: Z12.31 Encounter for screening mammogram for malignant neoplasm of breast (principal); Z12.2 Encounter for screening for malignant neoplasm of respiratory organs
CPT/HCPCS: 71271; 77063; 77067